=== PATIENT | female | born 1965 | race Caucasian/White ===

== ENCOUNTER 2022-08-13 16:02 | Inpatient (IN) | payer MEDICAID ==
[~2022-08-13] VITALS: Ht 157.5 cm; Wt 98.7 kg
--- NOTE | 2022-08-13 20:00 | NUR ---
ADMISSION NOTE PATIENT CAME IN UNIT AT AROUND 1938, ACCOMPANIED BY 1 ER PERSONNEL AND DAUGHTER, VIA STRETCHER. A/OX4, PATIENT IS AMBULATORY WITH STEADY GAIT. NO S/S OF APPARENT DISTRESS ON ROOM AIR. DENIES PAIN AT THIS TIME. STOMACH SOFT, NON-TENDER TO PALPATE. NEW ID BAND ON PATIENT. IV ACCESS ON R. AC #22G. BELONGINGS CHECKED AND SIGNED FOR. PATIENT HAS INTACT SKIN. WISHES TO BE FULL CODE AT THIS TIME. ORIENTED IN THE UNIT AND THE USE OF CALL LIGHT, ENCOURAGED WITH THE USE OF CALL LIGHT. SAFETY IN PLACE: BED IN LOWEST, LOCKED POSITION, WITH 2X SIDE RAIL UP. ALLERGIES VERIFIED. FAMILY HX VERIFIED. MADE KNOWN OF NPO STATUS, PATIENT AND DAUGHTER ACKNOWLEDGED. PER PATIENT SHE IS UP-TO-DATE WITH ALL HER IMMUNIZATIONS INCLUDING COVID. WILL FOLLOW THROUGH DOCTOR'S ORDERS AND CONTINUE WITH THE PLAN OF CARE. ADMISSION V/S FOLLOWS: 140/88, HR-88, T- 98.4, RR-18, SATURATING 97% ON ROOM AIR.
[2022-08-13] MEDS: IV LR 1000 ML 1,000 ML IV SCH (20:33)
[2022-08-13 20:35] LABS: BASOPHILS % (AUTO) 0.5 % (0.0-2.0); EOSINOPHILS % (AUTO) 2.7 % (0.0-6.0); HEMATOCRIT 36 % (33-45); LYMPHOCYTES % (AUTO) 24.2 % (20.0-44.0); MEAN CORPUSCULAR HGB CONC 33 g/dl (31.0-36.0); MEAN CORPUSCULAR VOLUME 91 fL (82-100); MONOCYTES # (AUTO) 0.6 K/uL (0.1-1.30); NEUTROPHILS # (AUTO) 5.3 K/uL (1.8-8.9); NEUTROPHILS % (AUTO) 65.6 % (43.0-81.0); PLATELET COUNT (AUTO) 290 K/uL (150-450); RED BLOOD CELL COUNT(AUTO) 3.97 MIL/uL (4.0-5.2); WHITE BLOOD COUNT (AUTO) 8.1 K/uL (4.3-11.0)
[2022-08-13 20:54] LABS: ALBUMIN 3.2 g/dL (3.4-5.0); BILIRUBIN,TOTAL 0.5 mg/dL (0.2-1.0); CALCIUM, SERUM 8.9 mg/dL (8.5-10.1); CREATININE 0.7 mg/dL (0.6-1.3); POTASSIUM 3.8 mmol/L (3.5-5.1); TOTAL PROTEIN, SERUM 7.1 g/dL (6.4-8.2)
[2022-08-13] MEDS ORDERED: MORPHINE SULFATE INJ 2 MG/ML DISP.SYRIN IV PRN (22:30)
[2022-08-13] MEDS ORDERED: ONDANSETRON HCL/PF 4 MG/2 ML VIAL IVP PRN (22:30)
[2022-08-13] MEDS ORDERED: ACETAMINOPHEN 325 MG TABLET PO PRN (22:30)
[2022-08-13] MEDS: ENOXAPARIN SODIUM 40 MG/0.4 ML DISP.SYRIN SQ SCH (22:37)
[2022-08-14] MEDS: IV LR 1000 ML 1,000 ML IV SCH ×4 (00:44→13:38)
[2022-08-14] MEDS ORDERED: LISI40TA13 PO (05:20)
[2022-08-14 05:51] LABS: BASOPHILS % (AUTO) 0.5 % (0.0-2.0); EOSINOPHILS % (AUTO) 3.3 % (0.0-6.0); HEMATOCRIT 34 % (33-45); HEMOGLOBIN 11.2 g/dL (11.5-14.8); LYMPHOCYTES # (AUTO) 2.1 K/uL (0.8-4.8); LYMPHOCYTES % (AUTO) 30.3 % (20.0-44.0); MEAN CORPUSCULAR HGB CONC 33 g/dl (31.0-36.0); MEAN CORPUSCULAR VOLUME 91 fL (82-100); MONOCYTES # (AUTO) 0.4 K/uL (0.1-1.30); MONOCYTES % (AUTO) 6.1 % (2.0-12.0); NEUTROPHILS # (AUTO) 4.2 K/uL (1.8-8.9); NEUTROPHILS % (AUTO) 59.8 % (43.0-81.0); PLATELET COUNT (AUTO) 290 K/uL (150-450); RED BLOOD CELL COUNT(AUTO) 3.73 MIL/uL (4.0-5.2); WHITE BLOOD COUNT (AUTO) 7.1 K/uL (4.3-11.0)
--- NOTE | 2022-08-14 06:10 | NUR ---
noc rn note MRSA SWAB SENT TO LAB AT THIS TIME
[2022-08-14 06:19] LABS: ALBUMIN 2.8 g/dL (3.4-5.0); BILIRUBIN,TOTAL 0.4 mg/dL (0.2-1.0); CALCIUM, SERUM 8.9 mg/dL (8.5-10.1); CREATININE 0.6 mg/dL (0.6-1.3); PHOSPHORUS 4.2 mg/dL (2.5-4.9); POTASSIUM 3.8 mmol/L (3.5-5.1); TOTAL PROTEIN, SERUM 6.5 g/dL (6.4-8.2)
--- NOTE | 2022-08-14 06:58 | NUR ---
noc rn closing note patient in bed with eyes closed, easy to arouse. patient remains to deny pain. no s/s of apparent distress on room air. all needs attended. all scheduled medications administered. safety in place, patient on 250cc/hr of LR. will endorse to morning shift RN for continuity of patient care.
--- NOTE | 2022-08-14 07:25 | NUR ---
WATER PUMPING STATION ENGINEER OPENING NOTES Received pt asleep in bed AOx4 lao speaking. No complaints of pain or discomfort at this time. Pt is on RA and tolerating it well. IV access on RAC 22G patent and intact. HOB elevated to pts comfort. Siderails up x2. Call light within reach. Will continue current plan of care.
[2022-08-14 08:00] VITALS: BP 135/79
--- NOTE | 2022-08-14 08:29 | NUR ---
ROLLY NOTES Dr. Krishna ordered NM Hepato Billary scan HIDA for pt. Explained the procedure to pt and verbalized understanding. Consent signed by pt.
--- NOTE | 2022-08-14 11:55 | NUR ---
CRISIS INTERVENTION SPECIALIST NOTES Pt picked up by Sharif from radiology to go to her procedure NM Hepato Biliary HIDA.
[2022-08-14] MEDS: LEVOFLOXACIN 500 MG /D5W 100ML 500 MG in PREMIX 1 EA IV SCH (13:38)
--- NOTE | 2022-08-14 13:52 | NUR ---
INSTRUCTIONAL TECHNOLOGIST NOTES Pt returned from procedure. Transferred from wheelchair to bed safely.
--- NOTE | 2022-08-14 14:56 | NUR ---
OPHTHALMIC MEDICAL ASSISTANT NOTES Relayed results of the HIDA scan to Dr. Krishna with new orders to put the pt on regular diet. Noted and carried out.
[2022-08-14] MEDS: METRONIDAZOLE 500MG/ NS 100ML 500 MG in PREMIX 1 EA IV SCH ×2 (15:46→21:10)
--- NOTE | 2022-08-14 15:47 | NUR ---
RN NOTE PATIENT WENT FOR A PROCEDURE, 1300 FLAGYL WAS ADMINISTERED LATE. PHARMACY WAS INFORMED.
[2022-08-14 16:00] VITALS: BP 124/70
--- NOTE | 2022-08-14 18:25 | NUR ---
GERENTOLOGICAL PHYSIOTHERAPIST CLOSING NOTES All due meds and tx given as ordered. Pt tolerated everything well. All needs attended to. Pt currently on RA and tolerating it well. IV access on RAC 22G patent and intact. HOB elevated to pts comfort. Siderails up at all times x2. Call light within reach. Will endorse to oncoming nurse.
[2022-08-14] MEDS: ENOXAPARIN SODIUM 40 MG/0.4 ML DISP.SYRIN SQ SCH (21:10)
[2022-08-15] VITALS: BP 149/66
[2022-08-15] MEDS: METRONIDAZOLE 500MG/ NS 100ML 500 MG in PREMIX 1 EA IV SCH (04:02)
--- NOTE | 2022-08-15 07:30 | NUR ---
NEWS PRODUCTION SUPERVISOR OPENING NOTES Received pt asleep in bed AOx4 iranian speaking. No complaints of pain or discomfort at this time. Pt is on RA and tolerating it well. IV access on RAC 22G patent and intact. HOB elevated to pts comfort. Siderails up x2. Bed on its lowest height and locked. Call light within reach. Will anticipate needs.
[2022-08-15 08:00] VITALS: BP 116/75
[2022-08-15] MEDS: LEVOFLOXACIN 500 MG /D5W 100ML 500 MG in PREMIX 1 EA IV SCH (10:50)
[2022-08-15] MEDS ORDERED: LEVO500T90 PO (11:15)
--- NOTE | 2022-08-15 13:00 | NUR ---
SPINDRAW OPERATOR NOTES Pt is medically stable for discharge to home per Dr. Krishna. IV access on RAC taken out d/t pt not requiring IV medications. Gave discharge paperwork to pt and explained the continuing medications she would need to take per MD orders. Belongings paperwork checked and pt signed. Escorted to the lobby via wheelchair where pts daughter Shruthi Baker picked her up to go home.
== END 2022-08-15 13:00 | disposition home or self-care (01) | DRG 282 ==
LOC: MEDSG1 19:32
PROVIDERS: ADMIT Internal Medicine; ATTEND Internal Medicine
DX: K85.10 Biliary acute pancreatitis without necrosis or infection (principal); D64.9 Anemia, unspecified; E66.9 Obesity, unspecified; Z20.822 Contact with and (suspected) exposure to COVID-19; Z68.39 Body mass index [BMI] 39.0-39.9, adult; R74.01 Elevation of levels of liver transaminase levels; R79.82 Elevated C-reactive protein (CRP); R91.8 Other nonspecific abnormal finding of lung field
CPT/HCPCS: 36415; 76700-TC; 78226; 80053-TC; 83605-TC; 83690-TC; 83735-TC; 84100-TC; 85025-TC; 86140-TC; 87081-TC; A4216; A9537; G0378; J1650; J1956; J3490; J7050; J7120